=== PATIENT | female | born 1945 | race Caucasian/White ===

== ENCOUNTER 2021-05-13 15:20 | Emergency (ER) | payer MEDICARE, SELFPAY ==
--- NOTE | ~2021-05-13 | XR_ITS ---
EXAMINATION: XR ANKLE, LEFT XR, FOOT, LEFT CLINICAL INFORMATION: Fall, trauma, pain COMPARISON: None TECHNIQUE: 2 views left ankle, 2 views left foot, and a lateral view of the combined left ankle and foot are obtained for a total of 5 views. FINDINGS: There is a nondisplaced transverse fracture at proximal shaft left 5th metatarsal. No dislocation or destructive process. The remainder of the bony structures appear intact. The ankle mortise is symmetric. The malleoli appear intact. There is soft tissue swelling overlying the lateral malleolus. The retrocalcaneal recess is preserved. There is small plantar calcaneal spur. There is some mild narrowing of the interphalangeal joints. No erosive changes. XR/XR ankle LT min 3V IMPRESSION: 1. Nondisplaced transverse fracture proximal shaft left 5th metatarsal. 2. Mild soft tissue swelling overlying left lateral malleolus. No ankle fracture or dislocation.
--- NOTE | ~2021-05-13 | XR_ITS ---
EXAMINATION: XR ANKLE, LEFT XR, FOOT, LEFT CLINICAL INFORMATION: Fall, trauma, pain COMPARISON: None TECHNIQUE: 2 views left ankle, 2 views left foot, and a lateral view of the combined left ankle and foot are obtained for a total of 5 views. FINDINGS: There is a nondisplaced transverse fracture at proximal shaft left 5th metatarsal. No dislocation or destructive process. The remainder of the bony structures appear intact. The ankle mortise is symmetric. The malleoli appear intact. There is soft tissue swelling overlying the lateral malleolus. The retrocalcaneal recess is preserved. There is small plantar calcaneal spur. There is some mild narrowing of the interphalangeal joints. No erosive changes. XR/XR foot LT min 3V IMPRESSION: 1. Nondisplaced transverse fracture proximal shaft left 5th metatarsal. 2. Mild soft tissue swelling overlying left lateral malleolus. No ankle fracture or dislocation.
--- NOTE | ~2021-05-13 | XR_ITS ---
EXAMINATION: XR KNEE, RIGHT CLINICAL INFORMATION: Fall, trauma, pain COMPARISON: None TECHNIQUE: AP and 2 lateral views of the right knee are obtained. FINDINGS: There is no fracture or dislocation. There are degenerative changes lateral knee joint compartment with joint narrowing and mild subchondral sclerosis and marginal osteophytes. There is no erosive change or chondrocalcinosis. There is small to moderate suprapatellar effusion suspected. No bony destructive process or periostitis. XR/XR knee RT 2V IMPRESSION: 1. No fracture or dislocation. 2. Degenerative changes lateral compartment with small to moderate effusion.
[2021-05-13 16:01] VITALS: BP 151/83; PULSE 83; RESP 18; TEMP 36.8; O2SAT 96; BMI 34.9
--- NOTE | 2021-05-13 16:07 | PC.NURSE ---
pt ref pain medication-doesnt like taking
--- NOTE | 2021-05-13 17:57 | ED_ITS ---
HPI - Fall General Chief Complaint: Fall Stated Complaint: left foot injury Time Seen by Provider: 05/13/21 17:57 Source: patient Mode of arrival: ambulatory Limitations: no limitations History of Present Illness HPI Narrative: 75 y/o female with history of HTN, HLD, anxiety, depression presenting with left foot and ankle pain after she tripped and fell down 2 stairs at home. She reports falling in a sitting position with her left foot pinned under her. She was able to get up and had some pain with weight bearing. She denies any lightheaded, dizziness or chest pain prior to the fall. She did not hit her head or lose consciousness. She was wearing sneakers when she fell. She has a history of a left foot fracture in the past and remembers being completely non-weight bearing for quite some time. She denies any numbness, tingling, weakness, or lacerations. She is not on anticoagulation. MD complaint: fall Onset (ago): hour(s) Fall from: standing Fall witnessed: no Place fall occurred: home Loss of consciousness: none Prolonged down time: no Symptoms prior to fall: none Context: tripped/slipped Location of injury - extremities: left: ankle and foot and right: knee Severity: moderate Severity scale (1-10): 6 Quality: aching Associated symptoms (after fall): denies Related Data Allergies Allergy/AdvReac Type Severity Reaction Status Date / Time No Known Allergies Allergy Verified 05/13/21 16:00 Review of Systems Constitutional: Constitutional: Denies frequent falls Eyes: Eyes: Denies blurry vision Cardiovascular: Cardiovascular: Denies chest pain, Reports pedal edema, Denies lightheadedness, Denies Loss of Consciousness and Denies dyspnea Respiratory: Respiratory: Denies dyspnea Gastrointestinal: Gastrointestinal: Denies abdominal pain, Denies nausea and Denies vomiting Musculoskeletal: Musculoskeletal: Reports abnormal gait, Reports arthralgias and Reports joint swelling Neurologic: Reports abnormal gait, Denies behavioral changes, Denies confusion, Denies frequent falls and Denies memory loss Psychiatric: Psychiatric: Denies behavioral changes, Denies confusion and Denies memory loss Hematologic/Lymphatic: Hematologic/Lymphatic: Denies easy bleeding and Denies easy bruising PMFSH Past Medical History Attestation statement: The following information was validated with the patient. Medical History Arthritis High cholesterol Hypertension Surgical History (Updated 05/13/21 @ 16:04 by Dorie Shahid RN) History of right shoulder replacement Social History Social History Advance Directives: No Advance Directives Information Provided: Yes Physical Exam Vital Signs: Vital Signs: Last Vital Signs Temp 98.2 F 05/13/21 16:01 Pulse 83 05/13/21 16:01 Resp 18 05/13/21 16:01 BP 151/83 H 05/13/21 16:01 Pulse Ox 96 05/13/21 16:01 Body Mass Index 34.9 Const: General: cooperative, healthy appearing, comfortable and no acute distress; No confusion Orientation/consciousness: No confusion HENMT: Head: Yes normal to inspection, Yes normocephalic and Yes atraumatic Ears: hearing grossly normal bilaterally General nose exam: Normal external nose present Face and sinus: Yes normal facial exam Mouth: Normal oral and palatal mucosa present, lip normal and tongue normal Eyes: General: appearance normal, both eyes and all related structures Neck: Neck: Yes normal visual inspection Chest: Chest palpation & inspection: normal inspection of the chest and normal palpation of entire chest wall Resp: Effort & Inspection: normal respiratory effort and able to speak in complete sentences Skin: General skin exam: no rashes or lesions noted Neuro: General: No confusion Extrem: Right upper extremity: normal to inspection and full ROM Left upper extremity: normal to inspection and full ROM Right lower extremity: normal to inspection, full ROM, normal capillary refill and no joint enlargement Left lower extremity: ankle Details: tenderness Location: of the lateral malleolus and anteriorly and swelling Details: laterally and foot Details: normal capillary refill, tenderness Location: of the lateral foot Location: in the mid- section, proximally and at the base of the 5th metatarsal and toes with normal ROM Psych: Appearance: grossly normal and well kempt Mental Status: mental status grossly normal Speech and movement: Normal speech and movement present Course Course Course Narrative: 75 y/o female presenting with left ankle and foot pain s/p mechanical fall at home today. X-rays show non-displaced transverse fracture of the proximal shaft of the 5th metatarsal. Spoke with Heike Jackson from Ortho who recommends WBAT, walking boot, assessing for steady and safe gait given age. She lives home alone. She has a walker and a cane at home from her late . She is very independent and is not interested in acute rehab. Reevaluation(s) Reevaluation #1: Patient did well with crutches. She would like to be discharged home. She does like taking pills, declining the need for stronger pain medication. We discuss safety at home with using a walker, cane or crutches for assistance. She has family who can come over and help if needed. Again declining PT eval and STR. She is stable for d/c home with plan for Ortho follow up in 1 week. Discharge Plan Discharge Clinical Impression: Foot fracture, left Qualifiers: Encounter type: initial encounter Fracture type: closed Qualified Code(s): S92.902A - Unspecified fracture of left foot, initial encounter for closed fracture Patient Disposition: Home, Self-Care Instructions: Foot Fracture in Adults (ED) Additional Instructions: Your x-ray today showed a broken bone on the outside of your foot. You may bear weight as tolerated. Rest and elevate your foot as much as possible. Recommend using crutches, cane or walker to get around your house. Recommend ibuprofen and/or Tylenol around the clock for pain. Follow up with Orthopedics in 1 week. Number listed below. If you develop new or worsening symptoms call 911 or come back to the ER for further evaluation. Referrals: Guillerom Jackson PA-C [Physician Purchasing Assistant] - 1 week (Nondisplaced transverse fracture proximal shaft left 5th metatarsal.)
[2021-05-13] MEDS: Ibuprofen 600 MG TABLET PO (18:57)
--- NOTE | 2021-05-13 20:47 | PC.NURSE ---
PT AMBULATING TO REST ROOM WITH WALKING BOOT AND CRUTCHES FOR SUPPORT.
== END 2021-05-13 20:49 | disposition home or self-care (01) ==
PROVIDERS: Emergency Provider Emergency Medicine Emergency Medical Services; PCP Nurse Practitioner Family
DX: S92.355A Nondisplaced fracture of fifth metatarsal bone, left foot, initial encounter for closed fracture (principal); W10.8XXA Fall (on) (from) other stairs and steps, initial encounter; I10 Essential (primary) hypertension; Y93.89 Activity, other specified; Y92.019 Unspecified place in single-family (private) house as the place of occurrence of the external cause; Y99.9 Unspecified external cause status
CPT/HCPCS: 73560; 73610; 73630; 99283; 99284

== ENCOUNTER 2021-05-22 07:30 | Outpatient (REF) | payer MEDICARE, SELFPAY ==
--- NOTE | ~2021-05-22 | XR_ITS ---
EXAMINATION: XR FOOT, LEFT CLINICAL INFORMATION: Fracture of left foot. COMPARISON: Left foot May 13, 2021 TECHNIQUE: AP, lateral, and oblique views of the left foot. FINDINGS: There is a healing fracture of the proximal shaft of the fifth metatarsal. Fracture line though remains partially radiolucent. There appears to be developing endosteal union at the medial side of the bone. No significant periosteal ossification seen around the fracture however. There is no change in alignment of the fracture fragments. XR/XR foot LT min 3V IMPRESSION: Healing fracture of the proximal shaft of the fifth metatarsal.
== END 2021-05-22 07:31 | disposition home or self-care (01) ==
LOC: HO.HOSX 07:30
PROVIDERS: Visit Provider Physician Assistant
DX: S92.352A Displaced fracture of fifth metatarsal bone, left foot, initial encounter for closed fracture (principal); L03.116 Cellulitis of left lower limb
CPT/HCPCS: 73630; 99202

== ENCOUNTER → 2021-05-26 12:19 | Outpatient (BNVA) | payer MEDICARE, SELFPAY | PROVIDERS: Visit Provider Physician Assistant | DX: S92.352D Displaced fracture of fifth metatarsal bone, left foot, subsequent encounter for fracture with routine healing (principal); L03.116 Cellulitis of left lower limb | CPT/HCPCS: 99212 ==

== ENCOUNTER → 2021-06-01 10:46 | Outpatient (BNVA) | payer MEDICARE, SELFPAY | PROVIDERS: Visit Provider Physician Assistant | DX: S92.352D Displaced fracture of fifth metatarsal bone, left foot, subsequent encounter for fracture with routine healing (principal); L03.116 Cellulitis of left lower limb | CPT/HCPCS: 99212 ==

== ENCOUNTER 2021-06-19 09:34 | Outpatient (REF) | payer MEDICARE, SELFPAY ==
--- NOTE | ~2021-06-19 | XR_ITS ---
EXAMINATION: XR FOOT, LEFT CLINICAL INFORMATION: Displaced fracture 5th metatarsal bone. COMPARISON: 05/22/2021 TECHNIQUE: AP, lateral, and oblique views of the left foot. FINDINGS: There is a comminuted minimally displaced fracture at the base of the 5th metatarsal. Compared to the prior study from 05/22/2021, the fracture line appears slightly widened measuring 1.2 mm, previously measuring 0.8 mm. No evidence of bony union at this time. XR/XR foot LT min 3V IMPRESSION: Healing fracture 5th metatarsal as described above.
== END 2021-06-19 09:35 | disposition home or self-care (01) ==
LOC: HO.HOSX 09:34
PROVIDERS: Visit Provider Physician Assistant
DX: S92.352A Displaced fracture of fifth metatarsal bone, left foot, initial encounter for closed fracture (principal); L03.90 Cellulitis, unspecified
CPT/HCPCS: 73630; 99212

== ENCOUNTER 2021-07-17 07:08 | Outpatient (REF) | payer MEDICARE, SELFPAY ==
--- NOTE | ~2021-07-17 | XR_ITS ---
EXAMINATION: XR FOOT, LEFT CLINICAL INFORMATION: Pain. COMPARISON: Left foot radiographs dated 06/19/2021. TECHNIQUE: AP, lateral, and oblique views of the left foot. FINDINGS: Nondisplaced, transverse fracture through the proximal diaphysis of the fifth metatarsal in unchanged anatomic alignment. Minimal new bone/callus formation along the medial aspect of the fracture. Persistence of the fracture line laterally. No joint space narrowing or marginal osteophytes. No osseous erosion. Plantar calcaneal spur. XR/XR foot LT min 3V IMPRESSION: Fifth metatarsal fracture with minimal new bone/callus formation.
== END 2021-07-17 07:09 | disposition home or self-care (01) ==
LOC: HO.HOSX 07:08
PROVIDERS: Visit Provider Physician Assistant
DX: S92.352D Displaced fracture of fifth metatarsal bone, left foot, subsequent encounter for fracture with routine healing (principal)
CPT/HCPCS: 73630; 99212

== ENCOUNTER 2023-12-19 12:43 | Outpatient (AMB) | payer MEDICARE, SELFPAY ==
--- NOTE | 2023-12-19 12:44 | MHC.OFFWIV ---
Intake Vital Signs 12/19/23 12:46 Height 5 ft 3 in BMI Reason not done Patient refused/unable BP 160/90 H Blood Pressure Location Lt brachial Position Sitting Pulse 79 Pulse Source Pulse Oximeter Temp 98.7 F Temp Source Temporal Artery Scan Pulse Oximetry (%) 97 Oxygen Delivery Method Room Air Intake Visit Reasons: EP Thrush (masked in lobby) Intake Note: pt is here today for thrush started 2 weeks ago Patient Tobacco Use Status: Never used Tobacco Allergies No Known Allergies Allergy (Verified 12/19/23 13:05) Medication List - Last Reconciled 12/19/23 by Winston Foster MD atenolol 50 mg PO DAILY atorvastatin mg PO clotrimazole 10 mg mucous membrane TID 2 weeks doxycycline monohydrate 100 mg PO BID 10 days fluconazole 100 mg PO DAILY olmesartan 5 mg PO DAILY sulfamethoxazole-trimethoprim 800-160 mg (Bactrim DS) 1 tab PO BID 1 week Do you need a note to return to daycare/school/sports/work: No HPI EP Thrush (masked in lobby) HPI Details 78 yr old female presents to the office for a sick visit. Numbness and burning sensation in the tongue and around the lips. Wears dentures. Sx present for the past week. [facility] Medical History Arthritis High cholesterol Hypertension Surgical History History of right shoulder replacement Social History Alcohol intake: never Patient Tobacco Use Status: Never used Tobacco Current occupational status: retired Current occupation: rt handed Physical Exam Vital Signs: Last Vital Signs Temp 98.7 F 12/19/23 12:46 Pulse 79 12/19/23 12:46 BP 160/90 H 12/19/23 12:46 Pulse Ox 97 12/19/23 12:46 Oxygen Delivery Method Room Air 12/19/23 12:46 HEENT Other: Oral cavity: Tongue is coated, redness and erythema at the lips. Assessment & Plan Assessment & Plan (1) Oral candidiasis: Code(s): B37.0 - Candidal stomatitis Plan: Mycelex edwige prescribed. If sx not better to follow up here. Coding Level of Care Code Est Pt Level 3 (27347) Diagnoses Oral candidiasis B37.0
[2023-12-19 12:46] VITALS: BP 160/90; PULSE 79; TEMP 37.1; O2SAT 97
== END 2023-12-19 16:00 | disposition home or self-care (01) ==
PROVIDERS: PCP Nurse Practitioner Family; Visit Provider Internal Medicine
DX: B37.0 Candidal stomatitis (principal)
CPT/HCPCS: 99213

== ENCOUNTER 2025-03-15 12:41 | Outpatient (AMB) | payer MEDICARE, SELFPAY ==
--- NOTE | 2025-03-15 12:51 | MHC.OFFWIV ---
Intake Vital Signs 03/15/25 12:52 Height 5 ft 3 in Weight 223 lb 6 oz BMI 39.6 BP 130/78 Blood Pressure Location Rt brachial Position Sitting Pulse 73 Pulse Source Pulse Oximeter Temp 98.2 F Temp Source Oral Pulse Oximetry (%) 95 Oxygen Delivery Method Room Air Intake Visit Reasons: EP pain ~ lower back Intake Note: Pt presents to the office today for c/o lower back pain that started yesterday when she was trying to get out of bed. Pt denies any urinary symptoms. Patient Tobacco Use Status: Never used Tobacco Allergies No Known Allergies Allergy (Verified 03/15/25 12:52) HPI EP pain ~ lower back HPI Details This is a 79-year-old female patient who presents to the walk-in clinic today with lower back pain that started yesterday morning. She states that she always has some degree of lower back pain, however yesterday when she woke up, her back pain was much worse, and she has had difficulty getting out of bed and with all activity. Denies any inciting event to this pain. Denies any recent heavy lifting or straining. Denies any radiation of pain down her legs. No history of any back surgeries. Denies any urinary symptoms. [facility] Medical History Arthritis High cholesterol Hypertension Surgical History History of right shoulder replacement Social History Alcohol intake: never Patient Tobacco Use Status: Never used Tobacco Current occupational status: retired Current occupation: rt handed Review of Systems Const All systems reviewed & are unremarkable except as noted in HPI and below Physical Exam Vital Signs: Last Vital Signs Temp 98.2 F 03/15/25 12:52 Pulse 73 03/15/25 12:52 BP 130/78 03/15/25 12:52 Pulse Ox 95 03/15/25 12:52 Oxygen Delivery Method Room Air 03/15/25 12:52 BMI result Body Mass Index 39.6 Const General: cooperative (Uncomfortable appearing, due to pain) Limitations: physical limitations and ambulation with cane HEENT Head: Yes normal to inspection Ears: hearing grossly normal bilaterally Resp Effort & Inspection: normal respiratory effort Auscultation: clear to auscultation bilaterally Cardio Rate: regular rate Rhythm: regular rhythm General: Yes no CVA tenderness Back/Spine/Pelvis Back: no CVA tenderness Thoracic/Lumbar Spine: thoracic and lumbar spine normal to inspection, straight leg raise negative bilaterally, pain with thoraco-lumbar ROM (Most severe in lumbar extension), paraspinal muscle tenderness bilaterally in the lower lumbar and thoraco-lumbar ROM limited (All directions due to pain, lower lumbar) Pelvis: no pain with lateral compression Skin General skin exam: no rashes or lesions noted Neuro General: tone normal Extrem General: Yes capillary refill normal and Yes no clubbing, cyanosis or edema Psych Appearance: grossly normal Mental Status: mental status grossly normal Speech and movement: Normal speech and movement present Results AMB Urinalysis, Automated UA Leukoctes 0 Jeannie/uL Last Edit by Radha Minaya CMA on 03/15/25 13:26 UA Nitrite Negative Last Edit by Radha Minaya CMA on 03/15/25 13:26 UA Urobilinogen 0.2 mg/dL Last Edit by Radha Minaya CMA on 03/15/25 13:26 UA Protein 0 mg/dL Last Edit by Radha Minaya CMA on 03/15/25 13:26 UA pH 6.0 Last Edit by Radha Minaya CMA on 03/15/25 13:26 UA Blood 0 Nitin/uL Last Edit by Radha Minaya CMA on 03/15/25 13:26 UA Specific [place] 1.005 Last Edit by Radha Minaya CMA on 03/15/25 13:26 UA Ketone Negative Last Edit by Radha Minaya CMA on 03/15/25 13:26 UA Bilirubin 0 mg/dL Last Edit by Radha Minaya CMA on 03/15/25 13:26 UA Glucose 0 mg/dL Last Edit by Radha Minaya CMA on 03/15/25 13:26 Results Reviewed Results Reviewed: Laboratory Last Values Urine pH (Auto) 6.0 03/15/25 13:26 Specific [place] (Auto) 1.005 03/15/25 13:26 Urine Protein (Auto) 0 mg/dL 03/15/25 13:26 Glucose (UA)(Auto) 0 mg/dL 03/15/25 13:26 Urine Ketones (Auto) Negative 03/15/25 13:26 Urine Blood (Auto) 0 Nitin/uL 03/15/25 13:26 Urine Nitrite (Auto) Negative 03/15/25 13:26 Urine Bilirubin (Auto) 0 mg/dL 03/15/25 13:26 Urine Urobilinogen (Auto) 0.2 mg/dL 03/15/25 13:26 Leukocyte Esterase (Auto) 0 Jeannie/uL 03/15/25 13:26 Assessment & Plan Assessment & Plan (1) Lumbar pain: Code(s): M54.50 - Low back pain, unspecified Plan: Symptoms and exam are consistent with a lumbar strain. She does not have any radicular symptoms or weakness in the lower extremities. She is having lumbar paraspinal spasms in addition to what is likely OA of the lumbar spine at baseline. I have recommended she try an short course of Meloxicam for pain/anti-inflammatory properties, and we can also try a muscle relaxer p.r.n.. We reviewed indications, use, possible side effects of these medications. I also strongly encouraged some gentle massage and stretching, heat application/hot shower, and topical lidocaine patches or cream. If she does not improve with time and conservative measures, or if symptoms worsen, she may need further evaluation and possibly course of physical therapy. Patient verbalizes understanding and agrees to Orders: Orders AMB Urinalysis Automated Today Z13.9 - Encounter for screening, unspecified Medications: New cyclobenzaprine Take 1 tablet by mouth up to twice a day as needed for lumbar spasms. 10 mg PO BID 7 days PRN 14 tabs 0RF muscle spasm M54.50 - Low back pain, unspecified meloxicam 15 mg PO DAILY 7 days 7 tabs 0RF M54.50 - Low back pain, unspecified Coding Level of Care Code Est Pt Level 4 (14930) Diagnoses Lumbar pain M54.50
[2025-03-15 12:52] VITALS: BP 130/78; PULSE 73; TEMP 36.8; O2SAT 95; BMI 39.6
== END 2025-03-15 13:46 | disposition home or self-care (01) ==
PROVIDERS: PCP Nurse Practitioner Family; Visit Provider Nurse Practitioner Family
DX: Z13.9 Encounter for screening, unspecified (principal); M54.50 Low back pain, unspecified

== ENCOUNTER → 2025-03-15 12:41 | Outpatient (BNVA) | payer MEDICARE, SELFPAY | PROVIDERS: PCP Nurse Practitioner Family; Visit Provider Nurse Practitioner Family | DX: M54.50 Low back pain, unspecified (principal) | CPT/HCPCS: 81003; 99212 ==